=== PATIENT | female | born 2000 | race Hispanic/Latino ===

== ENCOUNTER 2018-11-28 23:06 | Day surgery (SDC) | payer OTHER ==
[2018-11-28 23:30] VITALS: BP 114/74; TEMP 98.5; BMI 27.4
[2018-11-28 23:56] LABS: Amnisure Test No Membranes Rupture (No Rupture)
[2018-11-28 23:57] LABS: Amnisure Internal Control QC ACCEPTABLE (ACCEPTABLE)
[2018-11-29] MEDS ORDERED: hydrALAZINE 20 MG/ML VIAL SLOW IVP PRN (00:10)
--- NOTE | 2018-11-29 00:12 | PDOC.LDHP ---
Labor and Delivery H&P Chief complaint: other (Possible LOf) HPI: Patient from [place], [place] where she had care there Has appointment with [facility] today, 11/29/18 CC: possible CTX and possible leakage HPI: 18yo at 39 weeks with above. No VB, no large gush of fluid, good FM. review of Systems: complete ros completed and as per HPI Current gestational age (weeks): 39 Due date: 12/06/18 Grav: 3 Para: 2 OB History Details: x2 Current complications: none Abnormal US findings: No (unknown) Current medications: pre- vitamins Previous surgical history: none Allergies/Adverse Reactions: Allergies Allergy/AdvReac Type Severity Reaction Status Date / Time No Known Allergies Allergy Verified 07/10/16 10:17 Social history: none - Physical Exam Vital signs reviewed and normal: yes (114/74) General: NAD Heart: RRR Lungs: CTAB Abdomen: gravid Extremeties: no edema FHT: category 1 [place] contractions every: rare - Vaginal Exam cm dilated: 0 (no evidence ROM on exam) Effacement: 25% Station: -1 - Assessment THreatened labor at full term, [facility] appoitment tomorrow. Had care in [place], [place] - Plan Plan: observation in L&D (Amnisure is negative, no evidence of ROM with manuevers on exam. OK for outpatient care)
== END 2018-11-29 00:30 | disposition home or self-care (01) ==
LOC: L&D/OP 23:06
PROVIDERS: ATTEND Obstetrics & Gynecology
DX: O47.1 False labor at or after 37 completed weeks of gestation (principal); Z3A.39 39 weeks gestation of pregnancy
CPT/HCPCS: 84112; 99283

== ENCOUNTER 2018-12-07 05:30 | Inpatient (IN) | payer OTHER ==
--- NOTE | 2018-12-06 21:13 | PDOC.FPROB ---
FMR OB H&P: HPI - History of Present Illness Chief Complaint: IOL Indentification: 18yo @39.6wks by 7.2wk US History of Present Illness: 18yo @39.6wks by 7.2wk US presents for IOL. Endorses FM. Denies LOF, VB , abnormal discharge, CTX. Denies MCKENZIE, vision changes. Primary Care Physician: Radha Dawson MD FMR OB H&P: Current - Care : 3 Para: 2001 Gestational age: 39.6wks Due date: 12/08/18 Dating Criteria: 7.2wk US Course/Complications: Inconsistent care - OB Labs Blood type: O RH: positive Antibody Screen: negative HIV: negative RPR: negative HepBsAg: negative Rubella: immune Quad screen: negative Urine drug screen: negative Gonorrhea: negative Chlamydia: negative GBS: negative Additional labs: Zika Neg HSV 1 IgG positive - First Trimester Ultrasound First trimester: 7.2wks - Anatomy Survey Anatomy survey: Concern for IUGR vs poor dating. FMR OB H&P: History - Past Medical History PMH: Denies PMH - OB History OB History: , both at 39 weeks. 1st degree laceration. - PERINATAL TECHNICIAN History PERINATAL TECHNICIAN History: Denies history of STIs - Surgical History Sx History: Denies SxHX - Social History Social History: Denies tobacco, alcohol or drug use. - Family History Family History: Both children have autism. Aged 2 and 4. FMR OB H&P: Medications - Current Home Medications: Medication Instructions Recorded Confirmed Type Vitamin 1 tablet PO DAILY 06/15/16 12/07/18 History Ferrous Fumarate [Hemocyte] 324 mg PO DAILY #25 tablet 07/11/16 12/07/18 Rx Allergies/Adverse Reactions: Allergies Allergy/AdvReac Type Severity Reaction Status Date / Time No Known Allergies Allergy Verified 12/07/18 06:19 FMR OB H&P: ROS - Review of Systems General: denies: fever/chills, fatigue Eyes: denies: vision changes, double vision, scotomas ENT: denies: nasal congestion, rhinorrhea Cardiovascular: denies: chest pain, palpitation Respiratory: denies: congestion, shortness of breath Gastrointestinal: denies: abdominal pain, nausea, vomiting Genitourinary (Female): denies: dysuria, vaginal discharge, vaginal bleeding, contractions Neurologic: denies: numbness, syncope, seizures Integumentary: denies: rash, lesions Psychological: denies: depression, anxiety FMR OB H&P: Vital Signs - Maternal Vital signs: BP 119/72 HR 96 Temp: 97.7F - Heart Tones Baseline: 130 Variability: moderate Acceleration: present Deceleration: absent Category: category 1 [place] contractions every: Few, irregular FMR OB H&P: Physical Exam - Physical Exam General: NAD, awake, alert and oriented HEENT: normocephalic and atraumatic, MMM, conjunctiva clear, no scleral icterus , grossly normal hearing, oropharynx clear Neck: supple, trachea midline Heart: RRR, normal S1/S2, no murmurs/rubs/gallops General: CTAB, no respiratory distress, good air movement, no wheezing Abdomen: soft, gravid, non-tender, bowel sound present Musculoskeletal: normal gait and station, pulses present, no misalignment/ asymmetry, no atrophy Neurological: no focal deficit Skin: no rash Psychiatric: intact recent and remote memory, good judgement and insight, normal mood and affect - Pelvic Exam SVE: 2/50/-3 Koch score: 4 Membranes: Intact Presentation: Cephalic by bedside US Estimated Weight: 7 lbs FMR OB H&P: A/P - Problem List (1) Term Current Visit: Yes Status: Acute Code(s): Z34.90 - ENCNTR FOR SUPRVSN OF NORMAL , UNSP, UNSP TRIMESTER Disposition: 18yo @39.6wks by 7.2wk US presents for IOL sIUP, elective IOL - Plan for induction of labor with Cytotec. - FHTs Cat 1 - SVE: @0630, 2/50/-3, posterior and moderately firm by Juan Diego and rogerio nurse. - Continue serial cervical exams q4hr HSV 1 IgG positive - plan to do speculum exam prior to placement of Cytotec. - patient was not on prophylaxis. - denies any history of oral or genital lesions. Inconsistent care - Spoke with Physician in [facility]. He reviewed 1T US preformed in [place]. Discussion: Date/Time: 12/06/182109 This H&P was discussed with Dr. Hubbard and Dr. Sheriff who agree with the above documentation and plan.
[~2018-12-07 05:30] MED LIST: Lidocaine 1% (PF) 30 ML VIAL SC PRN; NS / Oxytocin 40 units/1000ml 1,000 ML IV PRN; NS w/ Oxytocin 10 units 500 ML IV SCH; Ondansetron PF 4 MG/2 ML Vial IVP PRN; Promethazine HCl 25 MG/ML VIAL IM PRN; hydrALAZINE 20 MG/ML VIAL SLOW IVP PRN
[2018-12-07 06:09] VITALS: BMI 29.2
[2018-12-07 06:34] LABS: Hemoglobin 10.2 g/dL (12.0-16.0); Mean Corpuscular HGB CONC 33.1 g/dL (32.0-36.0); Mean Corpuscular Hemoglobin 27.6 pg (25.0-35.0); Mean Corpuscular Volume 83.4 fL (78.0-98.0); Mean Platelet Volume 9.9 fL (7.4-10.4); Platelet Count 188 thou/uL (130-400); RBC Distribution Width 12.5 % (11.5-14.5); White Blood Cell (WBC) Count 9.6 thou/uL (4.8-10.8)
[2018-12-07 07:13] LABS: Syphilis Antibody Nonreactive (Nonreactive); Syphilis Antibody Index 0.03 S/CO (<1.00 Non-Reactive)
[2018-12-07 07:15] LABS: HBSAg Index 0.28 S/CO (0-0.99); Hep B Surf Ag Non-Reactive S/CO (NonReactive)
--- NOTE | 2018-12-07 07:51 | PDOC.EVN ---
Event Note - Event Note Event Note: Sterile speclum exam performed by Dr. Nunn. No lesions noted. Patient asymptomatic. Proceed with IOL. Mela Nunn, DO PGY-3
[2018-12-07] MEDS: NS w/ Oxytocin 10 units 500 ML IV SCH ×2 (07:55→20:10)
[2018-12-07] MEDS: Butorphanol Tartrate 1 MG/ML VIAL SLOW IVP PRN ×2 (09:58→13:45)
[2018-12-07] MEDS ORDERED: Bupivacaine/Epinephrine 0.25% 30 ML VIAL ONE (11:11)
--- NOTE | 2018-12-07 12:51 | PDOC.LDPN ---
Labor & Delivery Progress Note - Subjective Subjective: comfortable - Objective Vital signs reviewed and normal: yes General: NAD Uterine fundus: non tender Dilation: 3 Effacement: 50% Station: -2 FHT: category 1 (130/moderate/+ accels/no decels) [place] contractions every: 3-5min - Assessment (1) Term Code(s): Z34.90 - ENCNTR FOR SUPRVSN OF NORMAL , UNSP, UNSP TRIMESTER Current Visit: Yes Status: Acute Plan: continue plan of care, labor augmentation, pitocin for augmentation -: 18yo @39.6wks by 7.2wk US sIUP, elective IOL - Continue labor augmentation with pitocin, currently at 14. Contractions now q3 -5min - FHTs Cat 1 - SVE: /-2 - Continue serial cervical exams HSV 1 IgG positive - No active lesions Inconsistent care - Spoke with Physician in [facility]. He reviewed 1T US preformed in [place].
[2018-12-07] MEDS ORDERED: Fentanyl 4 mcg/Bup 0.1% Cadd 100 ML ONE (15:28)
--- NOTE | 2018-12-07 15:28 | PDOC.LDPN ---
Labor & Delivery Progress Note - Subjective Subjective: painful contractions - Objective Vital signs reviewed and normal: yes General: NAD Uterine fundus: non tender SVE: 15:20 Dilation: 4 Effacement: 90% Station: -2 FHT: category 1, variability present [place] contractions every: q2-3 min AROM: clear fluid - Assessment (1) Term Code(s): Z34.90 - ENCNTR FOR SUPRVSN OF NORMAL , UNSP, UNSP TRIMESTER Current Visit: Yes Status: Acute Plan: continue plan of care -: /-2 with clear AROM at 15:20. Continue with pitocin augmentation. Mela Nunn, DO PGY-3
[2018-12-07] MEDS ORDERED: Naloxone HCl 0.4 mg/ml Vial IVP PRN ×2 (15:58)
[2018-12-07] MEDS ORDERED: Acetaminophen 325 MG TAB PO PRN (15:58)
[2018-12-07] MEDS ORDERED: Ondansetron PF 4 MG/2 ML Vial IVP PRN (15:58)
[2018-12-07] MEDS ORDERED: diphenhydrAMINE 50 MG/ML VIAL IVP PRN (15:58)
[2018-12-07] MEDS ORDERED: Lactated Ringer's 500 ML IV PRN (15:58)
[2018-12-07] MEDS ORDERED: ePHEDrine/0.9% NaCl/PF SYRINGE 50 mg/10 ml SLOW IVP PRN (15:58)
[2018-12-07] MEDS ORDERED: Promethazine HCl 25 MG/ML VIAL IM PRN (15:58)
[2018-12-07] MEDS ORDERED: Communication Order-Pharmacy FS SCH (16:00)
[2018-12-07] MEDS ORDERED: Fentanyl 4 mcg/Bupivacaine 0.1% Cassette 100 ML EPIDURAL SCH (16:00)
--- NOTE | 2018-12-07 19:33 | PDOC.LDPN ---
Labor & Delivery Progress Note - Subjective Subjective: comfortable - Objective Vital signs reviewed and normal: yes (BP 138/87, HR 82) General: NAD, resting Uterine fundus: non tender SVE: @1914 Dilation: 6 Effacement: 90% (80-90%) Station: -1 FHT: category 1 (HR 130s, good variability. ) [place] contractions every: 3min IUPC placed: yes (@1914) - Assessment (1) Term Code(s): Z34.90 - ENCNTR FOR SUPRVSN OF NORMAL , UNSP, UNSP TRIMESTER Current Visit: Yes Status: Acute Plan: continue plan of care, pitocin for augmentation (Currently at 16)
[2018-12-07] MEDS: Lactated Ringer's 1,000 ML IV SCH ×3 (19:51→19:52)
--- NOTE | 2018-12-07 23:11 | PDOC.OP ---
Operative Note - Operative Note Operative Note: Delivering Physician - Drs. Barrera (PGY1) and Samir (PGY2) Attending - Dr. Hubbard Procedure: Spontaneous Vaginal Delivery Anesthesia: epidural QBL 231 ml Pre-op Diagnosis: 1. Term intrauterine in labor 2. Inconsistent care. 3. HSV 1 IgG positive Post-op Diagnosis: 1. Term intrauterine , delivered 2. Inconsistent care. 3. HSV 1 IgG positive Indications: A 18y/o female presents to L&D for elective induction of labor. Delivery Note: This is 18yo F @ 39.6 wks who delivered a viable F infant at 2238 on 12/07/18. Following an uneventful antepartum course, a vigorous female was delivered over an intact perineum in the occipitoanterior position. Anterior Shoulder and then remainder of the body delivered. No nuchal cord. The head was held down and mouth and nares were bulb suctioned. Cord clamped and cut and cord blood collected. Placenta delivered intact with a 3 vessel cord noted. Fundal massage was performed and the fundus was firm. The cervix and vagina were inspected and found to be free of lacerations. was placed skin to skin for 1 hour. Afterwards, went to nursery in good condition for routine care. Apgars were 8/9 at 1 & 5 minutes, respectively. Patient tolerated delivery well and went to after routine recovery/care.
[2018-12-08] MEDS ORDERED: hydrALAZINE 20 MG/ML VIAL SLOW IVP PRN (01:02)
[2018-12-08] MEDS ORDERED: NS / Oxytocin 40 units/1000ml 1,000 ML IV SCH (01:02)
[2018-12-08] MEDS ORDERED: Lanolin Ointment 7 GM TUBE TOP PRN (01:02)
[2018-12-08] MEDS ORDERED: Bisacodyl 10 MG SUPP PR PRN (01:02)
[2018-12-08] MEDS ORDERED: Milk Of Magnesia 30 ML UDCUP PO PRN (01:02)
[2018-12-08] MEDS: Ibuprofen 800 MG TAB PO SCH ×3 (05:58→23:08)
[2018-12-08 06:36] LABS: Hemoglobin 9.8 g/dL (12.0-16.0)
--- NOTE | 2018-12-08 07:18 | PDOC.PP ---
Post Progress Note Post Day #: 1 Subjective: 18yo @39.6wks by 7.2wk US delivered MYLENEA female last night via . Reports headache this morning and some back pain. Has been taking scheduled ibuprofen but this is not helping. Has not tried a heating pad yet. Walked to the bathroom this morning. Do difficulty urinating. Has not had BM yet. VB has slowed down. Ambulation: yes Vital Signs (12 hours) Temp Pulse Resp BP 12/08/18 04:20 98.8 F 83 20 113/65 12/08/18 01:20 97.7 F 81 20 126/87 Weight Weight 68.039 kg - Physical Examination General: NAD Cardiovascular: no m/r/g, RRR Respiratory: clear to auscultation bilaterally, non-labored breathing Abdominal: + bowel sounds, lochia, appropriately TTP Fundus firm & at: below the umbilicus Neurological: no gross focal deficits Psychiatric: A&Ox3, normal affect Result Diagrams: 12/08/18 06:15 Additional Labs: Post Labs Blood Type O POSITIVE 12/07/18 06:20 Hep Bs Antigen Non-Reactive S/CO (NonReactive) 12/07/18 06:20 (1) Term Code(s): Z34.90 - ENCNTR FOR SUPRVSN OF NORMAL , UNSP, UNSP TRIMESTER Status: Acute - Assessment/Plan sIUP, elective IOL- delivered - Continue routine care - Trying heating pad for pain HSV 1 IgG positive - No active lesions at delivery Inconsistent care Addendum - Attending - Attending Attestation Date/Time: 12/08/18 3917 I personally evaluated the patient and discussed the management with Dr. Dawson I agree with the History, Examination, Assessment and Plan documented above with any addition or exceptions noted below. stable PPD #1. meeting milestones. Continue routine care. Anticipate d/c to home on PPD #2
[2018-12-08] MEDS ORDERED: Adacel (T-DAP) 0.5 ML SYRINGE IM ONE (09:00)
[2018-12-08] MEDS: Ferrous Sulfate 325 MG TAB PO SCH ×2 (09:59→17:34)
[2018-12-08] MEDS: Docusate Calcium (SURFAK) 240 MG CAP PO SCH ×2 (10:02→23:08)
[2018-12-09] MEDS: Ibuprofen 800 MG TAB PO SCH ×2 (06:48→14:36)
--- NOTE | 2018-12-09 07:40 | PDOC.PP ---
Post Progress Note Post Day #: 2 Subjective: 18yo @39.6wks by 7.2wk US delivered MYLENEA female 12/07 via . Pain is well controlled with Ibuprofen. Breast and bottle feeding, breast feeding is going well. Minimal lochia. Ambulating and tolerating regular diet. PO intake tolerated: yes Ambulation: yes Vital Signs (12 hours) Pulse Ox 12/08/18 20:00 100 Weight Weight 68.039 kg - Physical Examination General: NAD Cardiovascular: no m/r/g, RRR Respiratory: clear to auscultation bilaterally, non-labored breathing Abdominal: + bowel sounds, lochia, appropriately TTP Fundus firm & at: below umbilicus Neurological: no gross focal deficits Psychiatric: A&Ox3, normal affect Result Diagrams: 12/08/18 06:15 Additional Labs: Post Labs Blood Type O POSITIVE 12/07/18 06:20 Hep Bs Antigen Non-Reactive S/CO (NonReactive) 12/07/18 06:20 (1) Normal course Code(s): Z39.2 - ENCOUNTER FOR ROUTINE FOLLOW-UP Status: Acute - Assessment/Plan sIUP, elective IOL- delivered - Continue routine care - Meeting all PP milestones - going well HSV 1 IgG positive - No active lesions at delivery Inconsistent care Dispo: Plan for d/c home today Addendum - Attending - Attending Attestation Date/Time: 12/09/18 [id number] I personally evaluated the patient and discussed the management with Dr. Dawson I agree with the History, Examination, Assessment and Plan documented above with any addition or exceptions noted below. stable PPD #2. meeting milestones. Continue routine care. D/c to home today
[2018-12-09 08:17] VITALS: BP 112/73; TEMP 98.3
[2018-12-09] MEDS: Docusate Calcium (SURFAK) 240 MG CAP PO SCH (09:54)
[2018-12-09] MEDS: Ferrous Sulfate 325 MG TAB PO SCH (09:54)
== END 2018-12-09 20:18 | disposition home or self-care (01) | DRG 807 ==
LOC: L&D 05:36 → 3SW 12-08 01:46
PROVIDERS: ADMIT Family Medicine; ATTEND Family Medicine
PROC: 10E0XZZ Delivery of Products of Conception, External Approach (ICD-10-PCS; principal; 2018-12-07)
PROC: 3E033VJ Introduction of Other Hormone into Peripheral Vein, Percutaneous Approach (ICD-10-PCS; 2018-12-07)
PROC: 10907ZC Drainage of Amniotic Fluid, Therapeutic from Products of Conception, Via Natural or Artificial Opening (ICD-10-PCS; 2018-12-07)
DX: O98.52 Other viral diseases complicating childbirth (principal); B00.9 Herpesviral infection, unspecified; Z37.0 Single live birth; Z3A.39 39 weeks gestation of pregnancy
CPT/HCPCS: 36415; 51702; 85014; 85018; 85027; 86780; 86850; 86900; 86901; 87340; J0595; J2590